=== PATIENT | female | born 1960 | race African-American/Black ===

== ENCOUNTER 2018-12-05 17:01 | Emergency (ER) | payer MEDICAID ==
[~2018-12-05] VITALS: Ht 160 cm; Wt 80.3 kg
[~2018-12-05 17:01] MED LIST: ALBUTEROL SULF8.5 GM INH; AZITHROMYCIN250 MG ORAL; IBUPROFEN600 MG ORAL; NKM; NORCO 10/3251 EA ORAL; NORCO 5-325 TA1 EACH ORAL; PREDNISONE20 MG ORAL; PREDNISONE50 MG ORAL; PROMETHAZINE-C118 M1 ORAL; ROBITUSSIN DM5 ML PO; ROBITUSSIN100 MG/52 ORAL; ULTRAM50 MG ORAL; VICODIN ES 7.51 EAC1 ORAL
[2018-12-05] MEDS ORDERED: OMEPRAZOLE20 M2 ORAL (17:15)
[2018-12-05] MEDS ORDERED: NORVASC10 MG ORAL (17:15)
[2018-12-05] MEDS ORDERED: LORATADINE10 M1 PO (17:15)
[2018-12-05] MEDS ORDERED: Promethazine/Codeine 5ml UD ORAL ONE (17:45)
[2018-12-05] MEDS: Albuterol/Ipratropium 3ml neb HHN SCH ×2 (17:53→18:55)
--- NOTE | 2018-12-05 18:33 | Emergency Room Report ---
History of Present Illness General Chief Complaint: Upper Respiratory Illness Source: Patient Present Illness HPI 57-year-old female presents to the emergency department complaining of productive cough times one week and nasal sinus congestion with rhinorrhea. Patient denies fevers or chills. Patient reports history of severe asthma. Patient states she takes inhaled steroids as well as albuterol inhalers and nebulizer treatments. Patient reports that her medications have not provided relief of her symptoms. She denies ill contacts or recent travel. Denies sore throat, ear pain, high fevers, lethargy, neck pain/stiffness, irritability, photophobia dehydration, N/V/D. Denies Cp, Palpitations, LOC, AMS, seizures, paresthesias, or changes in Hearing or vision, no Sudden severe ANDUJAR. she denies cardiac history or lower extremity edema. Allergies: Coded Allergies: No Known Allergies (Unverified , 12/05/18) Patient History Past Medical History: see triage record, asthma Past Surgical History: none Pertinent Family History: none Last Menstrual Period: 2015 Reviewed Nursing Documentation: PMH: Agreed; PSxH: Agreed Nursing Documentation-PMH Past Medical History: No History, Except For Hx Hypertension: Yes Hx Asthma: Yes Review of Systems All Other Systems: negative except mentioned in HPI Physical Exam Vital Signs Date Time Temp Pulse Resp B/P (MAP) Pulse Ox O2 Delivery O2 Flow Rate FiO2 12/05/18 17:11 99.3 83 16 108/72 94 Room Air 12/05/18 17:55 21 Sp02 EP Interpretation: reviewed, normal General Appearance: no apparent distress, alert, GCS 15, non-toxic Head: normocephalic, atraumatic Eyes: bilateral eye normal inspection, bilateral eye PERRL ENT: hearing grossly normal, normal pharynx, normal voice, TMs + canals normal , uvula midline, nasal congestion Neck: full range of motion Respiratory: chest non-tender, lungs clear, normal breath sounds, no respiratory distress, speaking full sentences, wheezing Cardiovascular #1: regular rate, rhythm, no edema Gastrointestinal: normal bowel sounds, non tender, soft Musculoskeletal: back normal, gait/station normal, normal range of motion, non- tender Neurologic: alert, oriented x3, responsive, motor strength/tone normal, sensory intact, speech normal, grossly normal Psychiatric: judgement/insight normal Skin: normal color, no rash, warm/dry, well hydrated Lymphatic: no adenopathy Medical Decision Making PA Attestation Dr. harmon is my supervising Physician whom patient management has been discussed with. Diagnostic Impression: Primary Impression: Bronchitis ER Course 57-year-old female presents to the emergency department complaining of productive cough times one week and nasal sinus congestion with rhinorrhea. Patient denies fevers or chills. Patient reports history of severe asthma. Patient states she takes inhaled steroids as well as albuterol inhalers and nebulizer treatments. Patient reports that her medications have not provided relief of her symptoms. She denies ill contacts or recent travel. Denies sore throat, ear pain, high fevers, lethargy, neck pain/stiffness, irritability, photophobia dehydration, N/V/D. Denies Cp, Palpitations, LOC, AMS, seizures, paresthesias, or changes in Hearing or vision, no Sudden severe ANDUJAR. she denies cardiac history or lower extremity edema. Ddx considered but are not limited to URI, pneumonia, PE, strep pharyngitis, meningitis. Vital signs: Pt.is afebrile VS are WNL H&PE are most consistent with bronchitis ORDERS: none required at this time, the diagnosis is clinical ED INTERVENTIONS: -DUO NEBS: x 2 - Cough Syrup x 1 -Prednisone 60 mg PO patient has a history of reactive airway disease and has a productive cough for greater than 1 week which makes her a candidate for oral antibiotics DISCHARGE: At this time pt. is stable for d/c to home. Will provide printed patient care instructions, and any necessary prescriptions. Care plan and follow up instructions have been discussed with the patient prior to discharge. Chest X-Ray Diagnostic Results Chest X-Ray Diagnostic Results : Chest X-Ray Ordered: Yes # of Views/Limited/Complete: 1 View Indication: Shortness of Breath EP Interpretation: Yes PA Xray: Interpretation reviewed, by supervising MD, and agrees with findings. Interpretation: no effusion, no pneumothorax, no acute cardiopulmonary disease Impression: No acute disease Electronically Signed by: Ginger Hall PA-C Last Vital Signs Date Time Temp Pulse Resp B/P (MAP) Pulse Ox O2 Delivery O2 Flow Rate FiO2 12/05/18 18:06 76 20 99 Room Air 21 12/05/18 17:11 99.3 108/72 Status: improved Disposition: HOME, SELF-CARE Condition: Stable Scripts Codeine/Promethazine Hcl* (PROMETHAZINE-CODEINE SYRUP*) 118 Ml Syrup 5 ML ORAL Q6H PRN for For Cough, #120 ML 0 Refills Prov: Ginger Hall 12/05/18 Levofloxacin* (LEVAQUIN*) 750 Mg Tablet 750 MG ORAL DAILY for 5 Days, #5 TAB Prov: Ginger Hall 12/05/18 Prednisone* (PREDNISONE*) 20 Mg Tablet 40 MG ORAL DAILY for 5 Days, #10 TAB Prov: Ginger Hall 12/05/18 Additional Instructions: Take medications as directed. Follow up with a Primary Care Provider in 3-5 days, even if your symptoms have resolved. --Please review list of primary care clinics, if you do not already have a primary care provider Return sooner to ED if new symptoms occur, or current symptoms become worse. Do not drink alcohol, drive, or operate heavy machinery while taking Cough Syrup as this may cause drowsiness. - Please note that this Emergency Department Report was dictated using [employer] manufacturing engineer technology software, occasionally this can lead to erroneous entry secondary to interpretation by the dictation equipment. Ginger Hall Dec 05, 2018 18:33
--- NOTE | 2018-12-05 18:37 | NUR ---
RESPIRATORY NOTE: Order for 3 doses of breathing tx. pt took 2 of 3, states she is having more pain but breathing is better. Ginger CORTES and RNLata aware.
[2018-12-05 18:56] VITALS: BP 110/74
--- NOTE | 2018-12-05 18:57 | NUR ---
ED Nurse Note:pt. came with coughing and headache pain, she was seen by ER PA then received meds and 3 breathing treatments
[2018-12-05] MEDS ORDERED: Excedrin Migraine tab ONE (19:05)
[2018-12-05] MEDS ORDERED: LEVAQUIN750 MG ORAL (19:12)
[2018-12-05] MEDS ORDERED: PREDNISONE20 MG ORAL (19:12)
[2018-12-05] MEDS ORDERED: PROMETHAZINE-C118 M1 ORAL (19:12)
[2018-12-05] MEDS ORDERED: Excedrin Migraine tab ORAL ONE (19:15)
[2018-12-05 19:30] VITALS: BP 114/72
--- NOTE | 2018-12-05 19:30 | NUR ---
ER Nurse Note: Pt seen, treated, medically cleared for discharge by ERMD. Discharge instructions and prescriptions given with repeat verbalization by pt. Instructed pt to follow up with primary care physican within one week. Pt a&ox4, VSS, no signs of distress. ID band removed; left with steady gait via own transportation.
--- NOTE | 2018-12-06 08:43 | Diagnostic Imaging Report ---
Indication: Chest pain Technique: One view of the chest Comparison: 07/18/2014 Findings: The lungs and pleural spaces are clear. The heart size is normal. No significant interim change Impression: No acute process
== END 2018-12-05 19:30 | disposition home or self-care (01) ==
LOC: EMR 19:12
DX: J45.909 Unspecified asthma, uncomplicated (principal)
CPT/HCPCS: 71045; 94640; 94664; 99284; J7512; J7620

== ENCOUNTER 2020-07-06 17:09 | Emergency (ER) | payer MEDICAID ==
[~2020-07-06] VITALS: Ht 160 cm; Wt 90.7 kg
[~2020-07-06 17:09] MED LIST changes: +LEVAQUIN750 MG ORAL; +LORATADINE10 M1 PO; +NORVASC10 MG ORAL; +OMEPRAZOLE20 M2 ORAL
[2020-07-06 17:15] VITALS: BP 148/96
[2020-07-06] MEDS ORDERED: LIDOCAINE700 M1 TP (17:30)
[2020-07-06] MEDS ORDERED: ROBAXIN-750750 MG PO (17:30)
[2020-07-06] MEDS ORDERED: Methocarbamol 750mg tab ORAL ONE (17:30)
--- NOTE | 2020-07-06 17:35 | Emergency Room Report ---
History of Present Illness General Chief Complaint: Pain Source: Patient, Medical Record Present Illness HPI Disclaimer: Please note that this report is being documented using [employer] technology. This can lead to erroneous entry secondary to incorrect interpretation by the dictating instrument. HPI: 59-year-old female history of arthritis presents for left-sided back and shoulder pain. Symptoms present 2 days. Patient reports aching and cramping over the left upper shoulder around the shoulder blade that sometimes radiates pain down the left arm to the left elbow. No fall or injury reported. Patient denies numbness, tingling, weakness in the extremity. Denies neck pain or stiffness. Her daughter was using a massage gun on the area which somewhat improved the symptoms and she has been taking her Percocet as prescribed by her pain management physician for treatment of her arthritis. She feels the left shoulder continue to tighten up. 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 EOMI. Resp: Normal work of breathing Skin: Intact. No abrasions, laceration or rash over the exposed skin MSK: Normal tone and bulk. Moving all extremities. No obvious deformity. Patient has difficulty with active abduction at the left shoulder but has full range of motion on abduction, abduction, internal/external rotation as well as full motion in the elbow on passive range of motion. Neuro: Awake and alert. Mentating appropriately Back: No tenderness, step-off or deformity in the midline of the cervical, thoracic or lumbar spine. No paraspinal tenderness. There is moderate pinpoint tenderness just below the inferior angle of the scapula which extends across the base of the scapula towards the mid axillary line. Medical Decision Making Diagnostic Impression: Primary Impression: Back muscle spasm ER Course 59-year-old female presents for evaluation of back and shoulder pain. No injury reported. Patient has full range of motion and is neurovascularly intact. Presentation today most consistent with spasm. Low clinical suspicion for fracture, shoulder impingement, frozen shoulder or neurologic process. Patient be treated with Robaxin and lidocaine patches and continue her pain regimen as prescribed by her hand touch up painter. We will follow-up with pain management and orthopedics as needed. And return to the ED with new or worsening symptoms. Last Vital Signs Date Time Temp Pulse Resp B/P (MAP) Pulse Ox O2 Delivery O2 Flow Rate FiO2 07/06/20 17:15 98.0 89 17 148/96 98 Room Air Disposition: HOME, SELF-CARE Condition: Stable Scripts Methocarbamol* (ROBAXIN-750*) 750 Mg Tablet 750 MG PO QID, #28 TAB 0 Refills Prov: Eduardo Zhang MD 07/06/20 Lidocaine (Lidocaine) 1 Each Adh..patch 700 MG TP DAILY, #10 PATCH Prov: Eduardo Zhang MD 07/06/20 [facility] 24 hour /7 days a week by Appointment Only [address] [address] Patient Instructions: Heat Therapy Additional Instructions: Please follow-up with your primary care doctor in the next 1 to 3 days to discuss this emergency department visit and for reevaluation. If you have any new or worsening symptoms please return to the emergency department for reevaluation. Please note that this report is being documented using [email or web address] technology. This can lead to erroneous entry secondary to incorrect interpretation by the dictating instrument. Eduardo Zhang MD Jul 06, 2020 17:35
== END 2020-07-06 17:40 | disposition home or self-care (01) ==
LOC: EMR 17:22
DX: M62.830 Muscle spasm of back (principal); I10 Essential (primary) hypertension; M19.90 Unspecified osteoarthritis, unspecified site; M25.512 Pain in left shoulder
CPT/HCPCS: 99282